=== PATIENT | female | born 1960 | race Two or more races ===

== ENCOUNTER 2016-04-24 21:29 | Emergency (ER) | payer MEDICAID, OTHER ==
[2016-04-24 21:39] VITALS: BP 201/104
[2016-04-24] MEDS ORDERED: Phenazopyridine TAB* 100 MG PO ONE (21:53)
[2016-04-24] MEDS ORDERED: Ciprofloxacin TAB* 500 MG PO ONE ×2 (21:54→23:03)
[2016-04-24] MEDS ORDERED: Acetaminophen TAB* 325 MG PO ONE (21:54)
[2016-04-24 22:54] LABS: Urine Bacteria Absent (Absent); Urine Bilirubin Negative (Negative); Urine Glucose Negative (Negative); Urine Nitrite Negative (Negative)
--- NOTE | 2016-04-25 17:17 | ED ---
GI/ HPI - HPI Summary HPI Summary: Patient arrives to ED with CC of urinary frequency, urgency, suprapubic pain x2 days and now new onset l flank pain since this morning. Denies history of kidney stones, but endorses frequent UTI's. She has not taken anything for the pain. Denies vaginal discharge or odor. Urine is dark and cloudy with no evidence of hematuria. Denies fever or feelings of malaise. Denies other symptoms. Patient is allergic to sulfa. - History of Current Complaint Chief Complaint: EDUrogenitalProblems Time Seen by Provider: 04/24/16 21:41 Stated Complaint: POSS UTI Hx Obtained From: Patient Onset/Duration: Started Days Ago Timing: Constant Severity: Moderate Current Severity: Moderate Pain Intensity: 5 Location of Pain: Suprapubic, Flank - l Pain Characteristics: Sharp, Burning, Pressure Associated Signs and Symptoms: Positive: Dysuria, UTI Symptoms Aggravating Factor(s): Voiding, Urination Alleviating Factor(s): Nothing - Risk Factors GI Bleed Risk Factor(s): Negative Spontaneous AB Risk Factor(s): Negative Placental Abruption Risk Factor(s): Negative Ectopic Risk Factor(s): Maternal Age ^ 30 - Allergy/Home Medications Allergies/Adverse Reactions: Allergies Allergy/AdvReac Type Severity Reaction Status Date / Time Sulfa Antibiotics AdvReac Intermediate Rash Verified 04/24/16 21:39 PMH/Surg Hx/FS Hx/Imm Hx Previously Healthy: Yes Infectious Disease History: No Infectious Disease History: Denies: Traveled Outside the [place] in Last 30 Days - Social History Occupation: Employed Full-time Lives: With Family Alcohol Use: None Substance Use Type: Reports: None Smoking Status (MU): Never Smoked Tobacco Do You Chew or Dip Tobacco: No Have You Chewed or Dipped Tobacco in the LAST YEAR: No Review of Systems Constitutional: Negative Eyes: Negative Respiratory: Negative Positive: Abdominal Pain - suprapubic Positive: burning, frequency, flank pain - l, pain, urgency Musculoskeletal: Negative Neurological: Negative Psychological: Normal All Other Systems Reviewed And Are Negative: Yes Physical Exam Triage Information Reviewed: Yes Vital Signs On Initial Exam: Initial Vitals Temp Pulse Resp BP Pulse Ox 97.9 F 97 16 201/104 99 04/24/16 21:36 04/24/16 21:36 04/24/16 21:36 04/24/16 21:36 04/24/16 21:36 Vital Signs Reviewed: Yes Appearance: Positive: Well-Appearing, No Pain Distress Skin: Positive: Skin Color Reflects Adequate Perfusion Head/Face: Positive: Normal Head/Face Inspection Neck: Positive: Supple, No Lymphadenopathy Respiratory/Lung Sounds: Positive: Clear to Auscultation, Breath Sounds Present Cardiovascular: Positive: Normal, RRR Abdomen Description: Positive: CVA Tenderness (L), Other: - tenderness over suprapubic region Bowel Sounds: Positive: Present Musculoskeletal: Positive: Normal, Strength/ROM Intact Psychiatric: Positive: Normal, Affect/Mood Appropriate Diagnostics - Vital Signs Vital Signs Temp Pulse Resp BP Pulse Ox 04/24/16 21:36 97.9 F 97 16 201/104 99 - Laboratory Lab Results: Lab Results 04/24/16 Range/Units 20:00 Urine Color Yellow Urine Appearance Cloudy Urine pH 6.0 (5-9) Ur Specific [place] 1.014 (1.010-1.030) Urine Protein 2+(100 mg/dl) H (Negative) Urine Ketones Negative (Negative) Urine Blood 3+ H (Negative) Urine Nitrate Negative (Negative) Urine Bilirubin Negative (Negative) Urine Urobilinogen Negative (Negative) Ur Leukocyte Esterase 3+ H (Negative) Urine WBC (Auto) 3+(>20/hpf) H (Absent) Urine RBC (Auto) 3+(>10/hpf) H (Absent) Ur Squamous Epith Cells Present H (Absent) Urine Bacteria Absent (Absent) Urine Glucose Negative (Negative) Lab Statement: Any lab studies that have been ordered have been reviewed, and results considered in the medical decision making process. GIGU Course/Dx - Diagnoses Differential Diagnoses - Female: Cervicitis, Urinary Tract Infection, Ureteral Calculi Provider Diagnoses: UTI (urinary tract infection) Discharge - Discharge Plan Condition: Stable Disposition: HOME Prescriptions: Ciprofloxacin TAB* [Cipro 500 MG TAB*] 500 mg PO BID #14 tab MDD 2 Phenazopyridine TAB* [Pyridium 100 mg TAB*] 100 mg PO TID PRN #15 tab MDD 3 PRN Reason: Pain Patient Education Materials: Urinary Tract Infection in Women (ED) Referrals: No Primary Care Phys,NOPCP [Primary Care Provider] - Additional Instructions: Dx. Urinary Tract Infection Drink plenty of fluids. Supplement with cranberry or chávez juice. You may also take an over the counter cranberry supplement. If you have any questions about this, you may ask your pharmacist. If your symptoms have not improved in 1-2 days, if you develop fever, sweats or chills, please go to your emergency room, or call your PCP. Antibiotics were prescribed to you. Please take as directed. Supplement with over the counter probiotics on the opposite schedule of your antibiotic to prevent secondary infections. Do not take together as they may counteract each other. Pyridium: This medication is used to treat pain, burning, increased urination, and increased urge to urinate. These symptoms are usually caused by infection, injury, surgery, catheter, or other conditions that irritate the lower urinary tract. Pyridium will treat the symptoms of a urinary tract infection, but this medication does not treat the actual infection. Take the antibiotic that your doctor prescribes to treat your infection. Pyridium will most likely darken the color of your urine to an orange or red color. This is a normal effect and is not cause for alarm unless you have other symptoms such as pale or yellowed skin, fever, stomach pain, nausea, and vomiting. Darkened urine may also cause stains to your underwear, which may or may not be removed by laundering. It can also permanently stain soft contact lenses, and you should not wear them while taking this medicine.
--- NOTE | 2016-04-29 09:07 | PN ---
Progress Note - Progress Note Note: Patient placed on cipro which final culture shows is sensitive to. no further action needed at this time.
== END 2016-04-24 23:41 | disposition home or self-care (01) ==
LOC: ED 21:29
DX: R30.0 Dysuria (principal); N39.0 Urinary tract infection, site not specified
CPT/HCPCS: 81003; 81015; 87077; 87086; 87186; 99282; A9270-GY

== ENCOUNTER 2016-06-05 10:08 | Emergency (ER) | payer OTHER ==
[2016-06-05 10:28] VITALS: BP 149/84
--- NOTE | 2016-06-05 10:36 | ED ---
Skin Complaint - HPI Summary HPI Summary: 55 y/o female with tick bite to back, unable to remove due to location, believes occurred yesterday after walking with dog, dog slept in bed with her. no other symptoms, complaints - History of Current Complaint Chief Complaint: EDRashSkinAbscess Time Seen by Provider: 06/05/16 10:35 Stated Complaint: TICK Hx Obtained From: Patient Onset/Duration: Started Days Ago Timing: Constant Current Severity: None Pain Intensity: 0 - Allergy/Home Medications Allergies/Adverse Reactions: Allergies Allergy/AdvReac Type Severity Reaction Status Date / Time Sulfa Antibiotics AdvReac Intermediate Rash Verified 06/05/16 10:24 PMH/Surg Hx/FS Hx/Imm Hx Previously Healthy: No Infectious Disease History: Denies: Traveled Outside the [place] in Last 30 Days - Social History Alcohol Use: None Substance Use Type: Reports: None Smoking Status (MU): Never Smoked Tobacco Review of Systems All Other Systems Reviewed And Are Negative: Yes Physical Exam - Summary Physical Exam Summary: L flank small wood tick, not engorged, noted embedded into patients skin, minimal erythema around area, using tick remover taken off whole with head attached, no complications Triage Information Reviewed: Yes Vital Signs On Initial Exam: Initial Vitals Temp Pulse Resp BP Pulse Ox 98.1 F 86 16 149/84 99 06/05/16 10:25 06/05/16 10:25 06/05/16 10:25 06/05/16 10:25 06/05/16 10:25 Vital Signs Reviewed: Yes Appearance: Positive: Well-Appearing, No Pain Distress, Well-Nourished Skin: Positive: Warm, Skin Color Reflects Adequate Perfusion, Other - no target lesions seen Diagnostics - Vital Signs Vital Signs Temp Pulse Resp BP Pulse Ox 06/05/16 10:25 98.1 F 86 16 149/84 99 - Laboratory Lab Statement: Any lab studies that have been ordered have been reviewed, and results considered in the medical decision making process. Course/Dx - Course Course Of Treatment: tick removed uncomplicated - Diagnoses Provider Diagnoses: Tick bite of back Discharge - Discharge Plan Condition: Improved Disposition: HOME Patient Education Materials: Lyme Disease (ED), Tick Bite (ED) Referrals: No Primary Care Phys,NOPCP [Primary Care Provider] - Additional Instructions: - REmoved without any engorgement seen, no antibiotics given - monitor for bullseye rash, notifiy PCP if occurs
== END 2016-06-05 10:35 | disposition home or self-care (01) ==
LOC: ED 10:08
DX: S20.469A Insect bite (nonvenomous) of unspecified back wall of thorax, initial encounter (principal); W57.XXXA Bitten or stung by nonvenomous insect and other nonvenomous arthropods, initial encounter; Y93.9 Activity, unspecified; Y92.9 Unspecified place or not applicable
CPT/HCPCS: 99281

== ENCOUNTER 2016-07-07 18:03 | Emergency (ER) | payer OTHER ==
[2016-07-07] MEDS ORDERED: Penicillin VK TAB* 250 MG PO ONE (19:20)
--- NOTE | 2016-07-07 19:23 | ED ---
Throat Pain/Nasal Congestion - HPI Summary HPI Summary: 55F presents with dental pain for past past two days. States that feels that has infection of left upper tooth. Has dentist appointment on Monday. Has been taking ibuprofen for pain and states it has been somewhat helping. She denies any fever, swelling around the eye, or pain with EOMI. - History of Current Complaint Chief Complaint: EDDentalPain Time Seen by Provider: 07/07/16 18:34 - Allergies/Home Medications Allergies/Adverse Reactions: Allergies Allergy/AdvReac Type Severity Reaction Status Date / Time Sulfa Antibiotics AdvReac Intermediate Rash Verified 06/05/16 10:24 PMH/Surg Hx/FS Hx/Imm Hx Endocrine/Hematology History: Denies: Hx Anticoagulant Therapy Cardiovascular History: Reports: Hx Hypertension Infectious Disease History: No Infectious Disease History: Denies: Traveled Outside the [place] in Last 30 Days - Family History Known Family History: Positive: Cardiac Disease - Social History Alcohol Use: None Substance Use Type: Reports: None Smoking Status (MU): Never Smoked Tobacco Review of Systems Negative: Fever Positive: Dental Pain Negative: Chest Pain Negative: Shortness Of Breath All Other Systems Reviewed And Are Negative: Yes Physical Exam Triage Information Reviewed: Yes Vital Signs On Initial Exam: Initial Vitals Temp Pulse Resp BP Pulse Ox 97.8 F 80 18 177/94 96 07/07/16 18:04 07/07/16 18:04 07/07/16 18:04 07/07/16 18:04 07/07/16 18:04 Vital Signs Reviewed: Yes Appearance: Positive: Pain Distress Skin: Positive: Warm, Dry Head/Face: Positive: Normal Head/Face Inspection Eyes: Positive: Normal, EOMI, RICK, Conjunctiva Clear ENT: Positive: Normal ENT inspection, Pharynx normal, TMs normal Dental: Positive: Percussion Tenderness @ - 13 Respiratory/Lung Sounds: Positive: Clear to Auscultation, Breath Sounds Present Cardiovascular: Positive: Normal, RRR Diagnostics - Vital Signs Vital Signs Temp Pulse Resp BP Pulse Ox 07/07/16 18:04 97.8 F 80 18 177/94 96 - Laboratory Lab Statement: Any lab studies that have been ordered have been reviewed, and results considered in the medical decision making process. EENT Course/Dx - Course Course Of Treatment: 55F presents with upper left dental pain for past two days. has follow up with dentist. denies any fever or pain with eye movement. on exam has tenderness of 13. will treat with PCN and tramadol. patient understands and agrees with plan - Differential Diagnoses Differential Diagnoses: Dental Abscess, Dental Caries, Fractured Tooth - Diagnoses Provider Diagnoses: Pain, dental Discharge - Discharge Plan Condition: Good Disposition: HOME Prescriptions: Penicillin VK TAB* [Penicillin VK 250 mg Tab*] 500 mg PO QID #27 tab traMADol TAB* [Ultram*] 25 mg PO Q8H PRN #6 tab MDD 3 PRN Reason: Pain Patient Education Materials: Toothache (ED) Referrals: [facility] [Outside] Additional Instructions: Take antibiotics: 4 times a day for 7 days, first dose given in ED Use ibuprofen every 6 hours and narcotic for break through pain at night Avoid hard, crunchy food until seen by dentist Follow up with dentist as soon as possible Return to ED if develop fever, shortness of breath, pain with eye movement or swelling around eye Establish care with primary care physician Images - Images Dental: 1 - pain
[2016-07-07 19:35] VITALS: BP 170/90
== END 2016-07-07 19:54 | disposition home or self-care (01) ==
LOC: ED 18:03
DX: K08.89 Other specified disorders of teeth and supporting structures (principal); I10 Essential (primary) hypertension
CPT/HCPCS: 99282; A9270-GY

== ENCOUNTER 2018-12-09 22:25 | Emergency (ER) | payer OTHER ==
--- NOTE | 2018-12-10 00:24 | ED ---
Skin Complaint - HPI Summary HPI Summary: 58 yo female presents to [facility] ED with tick bites. She tells me that this evening she noticed a tick to her left chest and right hip. She states these were not there this morning and thinks she may have acquired them from her dog who went on a hike earlier today. She has no symptoms or pain at this time. - History of Current Complaint Chief Complaint: EDRashSkinAbscess Time Seen by Provider: 12/10/18 00:24 Stated Complaint: TICK ON RT SIDE PER PT Hx Obtained From: Patient Current Severity: None Pain Intensity: 0 - Allergy/Home Medications Allergies/Adverse Reactions: Allergies Allergy/AdvReac Type Severity Reaction Status Date / Time Sulfa (Sulfonamide Allergy nausea, Verified 12/09/18 22:30 Antibiotics) achiness CONTRAST TO MR OR CT CONTRAST Allergy Rash Uncoded 12/09/18 22:30 PMH/Surg Hx/FS Hx/Imm Hx Endocrine/Hematology History: Denies: Hx Anticoagulant Therapy, Hx Diabetes Cardiovascular History: Denies: Hx Hypertension, Hx Pacemaker/ICD Respiratory History: Denies: Hx Asthma Sensory History: Denies: Hx Hearing Aid Neurological History: Denies: Hx Headaches Psychiatric History: Denies: Hx Panic Disorder - Cancer History Cancer Type, Location and Year: COLON CA Hx Chemotherapy: Yes - Surgical History Surgery Procedure, Year, and Place: T&A, PARTIAL COLECTOMY FOR CA Infectious Disease History: No Infectious Disease History: Denies: Traveled Outside the [place] in Last 30 Days - Family History Known Family History: Positive: Cardiac Disease - Social History Lives: With Family Alcohol Use: None Substance Use Type: Reports: None Smoking Status (MU): Never Smoked Tobacco Review of Systems Constitutional: Negative Cardiovascular: Negative Respiratory: Negative Gastrointestinal: Negative Skin: Other - Tick bites Neurological: Negative Psychological: Normal All Other Systems Reviewed And Are Negative: No Physical Exam - Summary Physical Exam Summary: GENERAL: NAD. WDWN. No pain distress. SKIN: Left chest wall: there is a 7mm diameter of mild erythema and edema with central tick attached. Not engorged. Right hip: there is a 7mm diameter of mild erythema and edema with central tick attached. Not engorged. NECK: Supple. Nontender. No lymphadenopathy. CHEST: No accessory muscle use. Breathing comfortably and in no distress. CV: Pulses intact. Cap refill <2seconds NEURO: Alert. PSYCH: Age appropriate behavior. Triage Information Reviewed: Yes Vital Signs On Initial Exam: Initial Vitals Temp Pulse Resp BP Pulse Ox 98 F 76 15 172/99 98 12/09/18 22:28 12/09/18 22:28 12/09/18 22:28 12/09/18 22:28 12/09/18 22:28 Vital Signs Reviewed: Yes Procedures - Sedation Patient Received Moderate/Deep Sedation with Procedure: No Diagnostics - Vital Signs Vital Signs Temp Pulse Resp BP Pulse Ox 12/09/18 22:28 98 F 76 15 172/99 98 - Laboratory Lab Statement: Any lab studies that have been ordered have been reviewed, and results considered in the medical decision making process. Course/Dx - Course Course Of Treatment: Ticks removed without difficulty with tick twisters. Advised to monitor for signs/symptoms of lyme disease and f/u with PCP if she develops - Diagnoses Provider Diagnoses: Tick bite Discharge ED - Sign-Out/Discharge Documenting (check all that apply): Patient Departure - Discharge Plan Condition: Stable Disposition: HOME Patient Education Materials: Lyme Disease (ED), Tick Bite (ED) Referrals: No Primary Care Phys,NOPCP [Primary Care Provider] - Additional Instructions: TICK BITE: You have been bitten by a tick. Once the tick is removed, these "bites" usually cause no problems. Tick fever, tick paralysis, [place] Spotted fever, and Lyme disease are uncommon -- but you should mention this tick bite to your doctor if you develop unusual symptoms in the next several weeks. If you develop any of the following, please see your physician promptly: (1) Fever, chills, or generalized malaise associated with a headache. (2) A red round area at the site of the bite (or elsewhere) (3) Joint pain, joint swelling or generalized weakness. (4) Redness, swelling, or drainage at the site of the bite. Ticks do not have a typical "head" attached to their body. There are mouth parts sticking out which they use to feed. If there are mouth parts left behind in the wound there is NO increased risk of Lyme infection or disease transmission. If mouth parts remain after tick removal, the best thing to do is apply warm soaks to the area 3-4 times per day to encourage the skin to expel the foreign material. WHEN A TICK IS NOT ENGORGED AND HAS BEEN ON LESS THAN 24 HOURS - THE RISK FOR LYME IS NEGLIGIBLE. YOU CAN REMOVE THE TICK AND OBSERVE THE AREA ON YOUR OWN. - Billing Disposition and Condition Condition: STABLE Disposition: Home
[2018-12-10 00:38] VITALS: BP 179/100
== END 2018-12-10 00:43 | disposition home or self-care (01) ==
LOC: ED 22:25
DX: S70.261A Insect bite (nonvenomous), right hip, initial encounter (principal); W57.XXXA Bitten or stung by nonvenomous insect and other nonvenomous arthropods, initial encounter; Y92.9 Unspecified place or not applicable; Z88.2 Allergy status to sulfonamides; Z85.038 Personal history of other malignant neoplasm of large intestine
CPT/HCPCS: 99282